=== PATIENT | female | born 1970 | race Caucasian/White ===

== ENCOUNTER 2019-04-15 14:52 | Inpatient (IN) | payer MEDICAID, OTHER ==
[~2019-04-15] VITALS: Ht 157.5 cm; Wt 64.0 kg
[~2019-04-15 14:52] MED LIST: FERR-89 PO; METF-960 PO; RISP1 PO
[2019-04-15] MEDS ORDERED: INSLAN SQ (15:25)
[2019-04-15 15:40] LABS: GLUCOSE,POINT OF CARE 44 MG/DL (70-110)
[2019-04-15] MEDS ORDERED: DEXTROSE 50%-WATER 25 GM/50 ML SYRINGE IVP ONE (15:45)
[2019-04-15] MEDS ORDERED: MECLIZINE HCL 25 MG TABLET PO ONE (15:45)
[2019-04-15] MEDS ORDERED: DEXTROSE 5%-0.9% SODIUM CHL 1,000 ML IV ONE (15:45)
[2019-04-15 16:07] LABS: HEMOGLOBIN 12.5 g/dL (12.0-16.0); LYMPHOCYTES # (AUTO) 2.6 K/uL (1.0-4.8); LYMPHOCYTES % (AUTO) 31.1 % (22.0-44.0); MEAN CORPUSCULAR HEMOGLOBIN 29.5 pg (26.0-34.0); MEAN CORPUSCULAR HGB CONC 33.8 G/dL (31.0-37.0); MEAN CORPUSCULAR VOLUME 87 fL (80-100); MONOCYTES # (AUTO) 0.4 K/uL (0.1-1.0); MONOCYTES % (AUTO) 4.3 % (2.0-9.0); NEUTROPHILS # (AUTO) 5.3 K/uL (1.8-7.7); NEUTROPHILS % (AUTO) 62.6 % (40.0-70.0); PLATELET COUNT (AUTO) 208 K/uL (150-450); RED BLOOD CELL COUNT(AUTO) 4.23 MIL/uL (4.00-5.20); RED CELL DISTRIBUTION WIDTH 13.6 % (11.5-14.5)
[2019-04-15 16:17] LABS: ANION GAP 8 mmol/L (8-16); CALCIUM, TOTAL 9.7 mg/dL (8.8-10.5); CARBON DIOXIDE 27 mmol/L (22-29); CHLORIDE 104 mmol/L (98-107); CREATININE 0.62 mg/dL (0.60-1.30); GLOMERULAR FILTR. RATE CALC > 60 mL/min (>60); GLUCOSE,RANDOM 68 mg/dL (70-110); POTASSIUM 3.8 mmol/L (3.5-5.1); SODIUM SERUM 139 mmol/L (136-145); UREA NITROGEN, BLOOD 22 mg/dL (7-18)
[2019-04-15 16:29] LABS: GLUCOSE,POINT OF CARE 79 MG/DL (70-110)
[2019-04-15 16:31] LABS: ALANINE AMINOTRANSFERASE 22 U/L (12-78); ALKALINE PHOSPHATASE 66 U/L (46-116); ASPARTATE AMINOTRANSFERASE 19 U/L (15-37); BILIRUBIN,TOTAL 0.3 mg/dL (0.1-1.0); TOTAL PROTEIN, SERUM 7.8 g/dL (6.4-8.2)
[2019-04-15 16:33] LABS: APPEARANCE,URINE CLEAR (CLEAR); BILIRUBIN,URINE NEGATIVE (NEGATIVE); GLUCOSE, URINE (UA) NEGATIVE (NEGATIVE); KETONES,URINE NEGATIVE (NEGATIVE); LEUKOCYTE ESTERASE ,URINE NEGATIVE (NEGATIVE); NITRATE,URINE NEGATIVE (NEGATIVE); OCCULT BLOOD,URINE NEGATIVE (NEGATIVE); PH,URINE 6.5 (5.0-8.0); PROTEIN,URINE NEGATIVE (NEGATIVE); UROBILINOGEN,URINE 0.2 mg/dL (<=1.0)
[2019-04-15 16:39] LABS: AMPHET/METH SCREEN,URINE NEGATIVE (NEGATIVE); BARBITURATE SCREEN, URINE NEGATIVE (NEGATIVE); BENZODIAZEPINES SCREEN,URINE NEGATIVE (NEGATIVE); CANNABINOID SCREEN,URINE NEGATIVE (NEGATIVE); COCAINE SCREEN,URINE NEGATIVE (NEGATIVE); METHADONE SCREEN, URINE NEGATIVE (NEGATIVE); OPIATE SCREEN,URINE NEGATIVE (NEGATIVE); PHENCYCLIDINE SCREEN,URINE NEGATIVE (NEGATIVE)
[2019-04-15 16:57] LABS: BACTERIA,URINE Rare /HPF (None Seen); RBC,URINE None Seen /HPF (0-2); SQUAMOUS EPITHELIAL CELL,UR Few /LPF (None Seen); WBC,URINE 0-2 /HPF (0-5)
[2019-04-15] MEDS ORDERED: HALOPERIDOL 5 MG TABLET PO PRN (17:15)
[2019-04-15 18:12] LABS: GLUCOSE,POINT OF CARE 167 MG/DL (70-110)
[2019-04-15 19:46] LABS: GLUCOSE,POINT OF CARE 147 MG/DL (70-110)
[2019-04-15 20:53] LABS: GLUCOSE,POINT OF CARE 149 MG/DL (70-110)
[2019-04-15] MEDS ORDERED: PNEUMOCOCCAL VACCINE POLYVALENT 0.5 ML VIAL [PPSV23] IM ONE (22:30)
[2019-04-15 22:50] VITALS: BP 115/69
[2019-04-16] MEDS ORDERED: DEXTROSE 50%-WATER 25 GM/50 ML SYRINGE IVP PRN (06:45)
[2019-04-16 06:57] LABS: GLUCOMETER DEV NAME(LOC) 3EX.; GLUCOSE,POINT OF CARE 155 MG/DL (70-110)
[2019-04-16] MEDS: INSULIN LISPRO 100 UNITS/ML SQ PRN ×2 (07:04→13:33)
[2019-04-16 08:23] LABS: CHOL/HDL RATIO 1.9 (3.9-5.7); FREE T4 (FREE THYROXINE) 1.04 ng/dL (0.76-1.46); THYROID STIMULATING HORMONE 4.32 uIU/mL (0.36-3.74)
[2019-04-16] MEDS ORDERED: INSULIN GLARGINE,HUM.REC.ANLOG 100 UNITS/ML SQ SCH (09:00)
[2019-04-16] MEDS: LOPERAMIDE HCL 2 MG CAPSULE PO PRN (09:25)
[2019-04-16] MEDS: SERTRALINE HCL 50 MG TABLET PO SCH (10:13)
[2019-04-16] MEDS: RisperiDONE 0.5 MG TABLET PO SCH (10:13)
[2019-04-16 13:23] LABS: GLUCOMETER DEV NAME(LOC) 3EX.; GLUCOSE,POINT OF CARE 213 MG/DL (70-110)
[2019-04-16 17:05] VITALS: BP 97/57
[2019-04-16] MEDS ORDERED: INSULIN LISPRO 100 UNITS/ML SQ PRN (17:45)
[2019-04-16] MEDS ORDERED: GLUCAGON,HUMAN RECOMBINANT 1 MG VIAL IM PRN (17:45)
[2019-04-16 17:46] LABS: GLUCOMETER DEV NAME(LOC) 3EX.; GLUCOSE,POINT OF CARE 98 MG/DL (70-110)
[2019-04-16 21:22] LABS: GLUCOMETER DEV NAME(LOC) 3EX.; GLUCOSE,POINT OF CARE 100 MG/DL (70-110)
[2019-04-17 04:08] VITALS: BP 126/68
[2019-04-17] MEDS: IBUPROFEN 400 MG TABLET PO PRN ×2 (04:12→16:40)
[2019-04-17 05:28] LABS: GLUCOMETER DEV NAME(LOC) 3EX.; GLUCOSE,POINT OF CARE 105 MG/DL (70-110)
[2019-04-17] MEDS: INSULIN LISPRO 100 UNITS/ML SQ PRN ×3 (07:06→22:09)
[2019-04-17] MEDS: RisperiDONE 0.5 MG TABLET PO SCH (09:00)
[2019-04-17 09:12] VITALS: BP 144/71
[2019-04-17] MEDS: SERTRALINE HCL 50 MG TABLET PO SCH (09:44)
[2019-04-17 11:33] LABS: GLUCOMETER DEV NAME(LOC) 3EX.; GLUCOSE,POINT OF CARE 135 MG/DL (70-110)
[2019-04-17 16:40] VITALS: BP 137/68
[2019-04-17 17:25] LABS: GLUCOMETER DEV NAME(LOC) 3EX.; GLUCOSE,POINT OF CARE 144 MG/DL (70-110)
[2019-04-17 22:19] LABS: GLUCOMETER DEV NAME(LOC) 3EX.; GLUCOSE,POINT OF CARE 192 MG/DL (70-110)
[2019-04-18 04:07] VITALS: BP 128/75
[2019-04-18] MEDS: LOPERAMIDE HCL 2 MG CAPSULE PO PRN (05:27)
[2019-04-18 05:34] LABS: GLUCOMETER DEV NAME(LOC) 3EX.; GLUCOSE,POINT OF CARE 120 MG/DL (70-110)
[2019-04-18 08:32] VITALS: BP 136/69
[2019-04-18] MEDS: RisperiDONE 0.5 MG TABLET PO SCH (09:03)
[2019-04-18] MEDS: SERTRALINE HCL 50 MG TABLET PO SCH (09:03)
[2019-04-18] MEDS: INSULIN GLARGINE,HUM.REC.ANLOG 100 UNITS/ML SQ SCH (09:14)
[2019-04-18 09:23] LABS: GLUCOMETER DEV NAME(LOC) 3EX.; GLUCOSE,POINT OF CARE 194 MG/DL (70-110)
[2019-04-18 11:41] LABS: GLUCOMETER DEV NAME(LOC) 3EX.; GLUCOSE,POINT OF CARE 131 MG/DL (70-110)
[2019-04-18 15:18] LABS: GLUCOMETER DEV NAME(LOC) 3EX.; GLUCOSE,POINT OF CARE 179 MG/DL (70-110)
[2019-04-18] MEDS: ONDANSETRON HCL 4 MG TABLET PO PRN (15:30)
[2019-04-18 16:36] VITALS: BP 103/73
[2019-04-18 17:11] LABS: GLUCOMETER DEV NAME(LOC) 3EX.; GLUCOSE,POINT OF CARE 141 MG/DL (70-110)
[2019-04-18] MEDS: INSULIN LISPRO 100 UNITS/ML SQ PRN ×2 (17:15→21:11)
[2019-04-18 21:20] LABS: GLUCOMETER DEV NAME(LOC) 3EX.; GLUCOSE,POINT OF CARE 185 MG/DL (70-110)
[2019-04-19] MEDS: ZOLPIDEM TARTRATE 10 MG TABLET PO PRN (01:23)
[2019-04-19 04:43] VITALS: BP 144/80
[2019-04-19 05:35] LABS: GLUCOMETER DEV NAME(LOC) 3EX.; GLUCOSE,POINT OF CARE 118 MG/DL (70-110)
[2019-04-19] MEDS: INSULIN LISPRO 100 UNITS/ML SQ PRN ×2 (07:03→17:26)
[2019-04-19 08:08] VITALS: BP 139/73
[2019-04-19] MEDS: SERTRALINE HCL 50 MG TABLET PO SCH (08:43)
[2019-04-19] MEDS: RisperiDONE 0.5 MG TABLET PO SCH ×3 (08:43→09:00)
[2019-04-19] MEDS: INSULIN GLARGINE,HUM.REC.ANLOG 100 UNITS/ML SQ SCH (08:53)
[2019-04-19 09:04] LABS: GLUCOMETER DEV NAME(LOC) 3EX.; GLUCOSE,POINT OF CARE 221 MG/DL (70-110)
[2019-04-19 16:33] VITALS: BP 148/88
[2019-04-19 17:01] LABS: GLUCOMETER DEV NAME(LOC) 3EX.; GLUCOSE,POINT OF CARE 193 MG/DL (70-110)
[2019-04-19] MEDS: LOPERAMIDE HCL 2 MG CAPSULE PO PRN (17:33)
[2019-04-19 20:26] LABS: GLUCOMETER DEV NAME(LOC) 3EX.; GLUCOSE,POINT OF CARE 170 MG/DL (70-110)
[2019-04-20 00:27] VITALS: BP 123/74
[2019-04-20] MEDS: IBUPROFEN 400 MG TABLET PO PRN ×2 (00:30→21:17)
[2019-04-20] MEDS: ZOLPIDEM TARTRATE 10 MG TABLET PO PRN ×2 (00:31→21:16)
[2019-04-20 05:43] LABS: GLUCOMETER DEV NAME(LOC) 3EX.; GLUCOSE,POINT OF CARE 76 MG/DL (70-110)
[2019-04-20] MEDS: INSULIN LISPRO 100 UNITS/ML SQ PRN ×3 (06:49→17:16)
[2019-04-20 08:41] VITALS: BP 129/68
[2019-04-20] MEDS: RisperiDONE 0.5 MG TABLET PO SCH (09:45)
[2019-04-20] MEDS: SERTRALINE HCL 50 MG TABLET PO SCH (09:45)
[2019-04-20] MEDS: INSULIN GLARGINE,HUM.REC.ANLOG 100 UNITS/ML SQ SCH (09:49)
[2019-04-20] MEDS: ONDANSETRON HCL 4 MG TABLET PO PRN ×2 (10:06→16:12)
[2019-04-20] MEDS: ARIPiprazole 5 MG TABLET PO SCH (11:22)
[2019-04-20] MEDS: LOPERAMIDE HCL 2 MG CAPSULE PO PRN (11:22)
[2019-04-20 12:14] LABS: GLUCOMETER DEV NAME(LOC) 3EX.; GLUCOSE,POINT OF CARE 172 MG/DL (70-110)
[2019-04-20 16:58] VITALS: BP 95/55
[2019-04-20 20:56] LABS: GLUCOMETER DEV NAME(LOC) 3EX.; GLUCOSE,POINT OF CARE 164 MG/DL (70-110)
[2019-04-20 20:56] LABS: GLUCOMETER DEV NAME(LOC) 3EX.; GLUCOSE,POINT OF CARE 139 MG/DL (70-110)
[2019-04-20 21:14] VITALS: BP 111/60
[2019-04-21] MEDS: ONDANSETRON HCL 4 MG TABLET PO PRN (04:27)
[2019-04-21 05:40] VITALS: BP 97/64
[2019-04-21 06:13] LABS: GLUCOMETER DEV NAME(LOC) 3EX.; GLUCOSE,POINT OF CARE 109 MG/DL (70-110)
[2019-04-21 08:32] VITALS: BP 119/74
[2019-04-21] MEDS: ARIPiprazole 5 MG TABLET PO SCH ×2 (09:00→09:23)
[2019-04-21] MEDS: SERTRALINE HCL 50 MG TABLET PO SCH (09:24)
[2019-04-21] MEDS: INSULIN GLARGINE,HUM.REC.ANLOG 100 UNITS/ML SQ SCH (09:24)
[2019-04-21 11:20] LABS: GLUCOMETER DEV NAME(LOC) 3EX.; GLUCOSE,POINT OF CARE 144 MG/DL (70-110)
[2019-04-21] MEDS: INSULIN LISPRO 100 UNITS/ML SQ PRN ×2 (11:25→20:43)
[2019-04-21 16:45] VITALS: BP 129/70
[2019-04-21 17:05] LABS: GLUCOMETER DEV NAME(LOC) 3EX.; GLUCOSE,POINT OF CARE 132 MG/DL (70-110)
[2019-04-21 20:48] LABS: GLUCOMETER DEV NAME(LOC) 3EX.; GLUCOSE,POINT OF CARE 227 MG/DL (70-110)
[2019-04-21] MEDS: ZOLPIDEM TARTRATE 10 MG TABLET PO PRN (20:51)
[2019-04-22 02:37] VITALS: BP 116/70
[2019-04-22] MEDS: ONDANSETRON HCL 4 MG TABLET PO PRN (04:33)
[2019-04-22] MEDS: LOPERAMIDE HCL 2 MG CAPSULE PO PRN (04:33)
[2019-04-22 05:54] LABS: GLUCOMETER DEV NAME(LOC) 3EX.; GLUCOSE,POINT OF CARE 110 MG/DL (70-110)
[2019-04-22] MEDS: SERTRALINE HCL 50 MG TABLET PO SCH (08:29)
[2019-04-22] MEDS: INSULIN GLARGINE,HUM.REC.ANLOG 100 UNITS/ML SQ SCH (08:38)
[2019-04-22] MEDS: ARIPiprazole 5 MG TABLET PO SCH (08:42)
[2019-04-22 08:59] VITALS: BP 109/64
[2019-04-22 12:04] LABS: GLUCOMETER DEV NAME(LOC) 3EX.; GLUCOSE,POINT OF CARE 162 MG/DL (70-110)
[2019-04-22] MEDS: INSULIN LISPRO 100 UNITS/ML SQ PRN ×3 (12:07→21:43)
[2019-04-22 17:29] VITALS: BP 130/67
[2019-04-22 17:34] LABS: GLUCOMETER DEV NAME(LOC) 3EX.; GLUCOSE,POINT OF CARE 146 MG/DL (70-110)
[2019-04-22 21:44] LABS: GLUCOMETER DEV NAME(LOC) 3EX.; GLUCOSE,POINT OF CARE 154 MG/DL (70-110)
[2019-04-23] MEDS: ZOLPIDEM TARTRATE 10 MG TABLET PO PRN ×2 (01:12→23:10)
[2019-04-23] MEDS: ONDANSETRON HCL 4 MG TABLET PO PRN ×3 (01:12→18:37)
[2019-04-23 01:21] VITALS: BP 117/70
[2019-04-23 05:43] LABS: GLUCOMETER DEV NAME(LOC) 3EX.; GLUCOSE,POINT OF CARE 92 MG/DL (70-110)
[2019-04-23] MEDS: INSULIN LISPRO 100 UNITS/ML SQ PRN ×2 (06:33→12:46)
[2019-04-23 08:55] VITALS: BP 133/57
[2019-04-23] MEDS: ARIPiprazole 5 MG TABLET PO SCH (11:02)
[2019-04-23] MEDS: SERTRALINE HCL 50 MG TABLET PO SCH (11:02)
[2019-04-23] MEDS: INSULIN GLARGINE,HUM.REC.ANLOG 100 UNITS/ML SQ SCH (11:13)
[2019-04-23 12:51] LABS: GLUCOMETER DEV NAME(LOC) 3EX.; GLUCOSE,POINT OF CARE 161 MG/DL (70-110)
[2019-04-23] MEDS: IBUPROFEN 400 MG TABLET PO PRN (13:50)
[2019-04-23 16:46] LABS: GLUCOMETER DEV NAME(LOC) 3EX.; GLUCOSE,POINT OF CARE 124 MG/DL (70-110)
[2019-04-23 17:51] VITALS: BP 105/66
[2019-04-23 21:13] LABS: GLUCOMETER DEV NAME(LOC) 3EX.; GLUCOSE,POINT OF CARE 135 MG/DL (70-110)
[2019-04-24] MEDS: ONDANSETRON HCL 4 MG TABLET PO PRN ×3 (03:42→15:02)
[2019-04-24 03:43] VITALS: BP 103/64
[2019-04-24 05:27] LABS: GLUCOMETER DEV NAME(LOC) 3EX.; GLUCOSE,POINT OF CARE 81 MG/DL (70-110)
[2019-04-24] MEDS: INSULIN LISPRO 100 UNITS/ML SQ PRN ×2 (07:03→21:28)
[2019-04-24] MEDS: SERTRALINE HCL 50 MG TABLET PO SCH (08:01)
[2019-04-24] MEDS: ARIPiprazole 5 MG TABLET PO SCH (08:01)
[2019-04-24] MEDS: LOPERAMIDE HCL 2 MG CAPSULE PO PRN (08:05)
[2019-04-24] MEDS: INSULIN GLARGINE,HUM.REC.ANLOG 100 UNITS/ML SQ SCH (08:05)
[2019-04-24 08:21] VITALS: BP 109/83
[2019-04-24 11:31] LABS: GLUCOMETER DEV NAME(LOC) 3EX.; GLUCOSE,POINT OF CARE 84 MG/DL (70-110)
[2019-04-24 15:02] VITALS: BP 110/67
[2019-04-24] MEDS: LORazepam 2 MG TABLET PO PRN (15:02)
[2019-04-24 16:00] VITALS: BP 98/62
[2019-04-24 17:14] LABS: GLUCOMETER DEV NAME(LOC) 3EX.; GLUCOSE,POINT OF CARE 119 MG/DL (70-110)
[2019-04-24 21:53] LABS: GLUCOMETER DEV NAME(LOC) 3EX.; GLUCOSE,POINT OF CARE 158 MG/DL (70-110)
[2019-04-24] MEDS: ZOLPIDEM TARTRATE 10 MG TABLET PO PRN (22:21)
[2019-04-25 04:18] VITALS: BP 90/58
[2019-04-25 05:46] LABS: GLUCOMETER DEV NAME(LOC) 3EX.; GLUCOSE,POINT OF CARE 99 MG/DL (70-110)
[2019-04-25] MEDS: INSULIN LISPRO 100 UNITS/ML SQ PRN ×2 (07:05→21:15)
[2019-04-25] MEDS: LORazepam 2 MG TABLET PO PRN ×2 (08:21→16:48)
[2019-04-25] MEDS: ONDANSETRON HCL 4 MG TABLET PO PRN ×2 (08:21→21:27)
[2019-04-25] MEDS: SERTRALINE HCL 100 MG TABLET PO SCH (08:21)
[2019-04-25] MEDS: ARIPiprazole 5 MG TABLET PO SCH (08:21)
[2019-04-25] MEDS: INSULIN GLARGINE,HUM.REC.ANLOG 100 UNITS/ML SQ SCH (08:24)
[2019-04-25 09:00] VITALS: BP 109/63
[2019-04-25 12:14] LABS: GLUCOMETER DEV NAME(LOC) 3EX.; GLUCOSE,POINT OF CARE 110 MG/DL (70-110)
[2019-04-25 16:53] LABS: GLUCOMETER DEV NAME(LOC) 3EX.; GLUCOSE,POINT OF CARE 98 MG/DL (70-110)
[2019-04-25 18:44] VITALS: BP 100/65
[2019-04-25 21:20] LABS: GLUCOMETER DEV NAME(LOC) 3EX.; GLUCOSE,POINT OF CARE 146 MG/DL (70-110)
[2019-04-26] MEDS: ZOLPIDEM TARTRATE 10 MG TABLET PO PRN ×2 (01:46→21:06)
[2019-04-26 05:32] LABS: GLUCOMETER DEV NAME(LOC) 3EX.; GLUCOSE,POINT OF CARE 122 MG/DL (70-110)
[2019-04-26 06:30] VITALS: BP 96/59
[2019-04-26] MEDS: SERTRALINE HCL 100 MG TABLET PO SCH (08:35)
[2019-04-26] MEDS: ARIPiprazole 5 MG TABLET PO SCH (08:35)
[2019-04-26] MEDS: LOPERAMIDE HCL 2 MG CAPSULE PO PRN (08:37)
[2019-04-26] MEDS: LORazepam 2 MG TABLET PO PRN ×2 (08:37→13:47)
[2019-04-26] MEDS: INSULIN GLARGINE,HUM.REC.ANLOG 100 UNITS/ML SQ SCH (08:42)
[2019-04-26 09:37] VITALS: BP 128/68
[2019-04-26 13:28] LABS: GLUCOMETER DEV NAME(LOC) 3EX.; GLUCOSE,POINT OF CARE 130 MG/DL (70-110)
[2019-04-26] MEDS: ONDANSETRON HCL 4 MG TABLET PO PRN (13:51)
[2019-04-26 16:00] VITALS: BP 114/66
[2019-04-26] MEDS: INSULIN LISPRO 100 UNITS/ML SQ PRN ×2 (17:13→21:14)
[2019-04-26 17:30] LABS: GLUCOMETER DEV NAME(LOC) 3EX.; GLUCOSE,POINT OF CARE 162 MG/DL (70-110)
[2019-04-26 21:24] LABS: GLUCOMETER DEV NAME(LOC) 3EX.; GLUCOSE,POINT OF CARE 135 MG/DL (70-110)
[2019-04-27] MEDS: LORazepam 2 MG TABLET PO PRN ×3 (01:51→17:58)
[2019-04-27] MEDS: ONDANSETRON HCL 4 MG TABLET PO PRN ×2 (01:51→17:56)
[2019-04-27 05:29] LABS: GLUCOMETER DEV NAME(LOC) 3EX.; GLUCOSE,POINT OF CARE 89 MG/DL (70-110)
[2019-04-27] MEDS: LOPERAMIDE HCL 2 MG CAPSULE PO PRN (05:44)
[2019-04-27] MEDS: INSULIN LISPRO 100 UNITS/ML SQ PRN ×3 (07:01→17:55)
[2019-04-27 08:00] VITALS: BP 118/71
[2019-04-27] MEDS: ARIPiprazole 5 MG TABLET PO SCH (08:18)
[2019-04-27] MEDS: SERTRALINE HCL 100 MG TABLET PO SCH (08:19)
[2019-04-27] MEDS: INSULIN GLARGINE,HUM.REC.ANLOG 100 UNITS/ML SQ SCH (09:00)
[2019-04-27 11:51] LABS: GLUCOMETER DEV NAME(LOC) 3EX.; GLUCOSE,POINT OF CARE 108 MG/DL (70-110)
[2019-04-27 16:54] LABS: GLUCOMETER DEV NAME(LOC) 3EX.; GLUCOSE,POINT OF CARE 146 MG/DL (70-110)
[2019-04-27 19:49] VITALS: BP 115/67
[2019-04-28 03:08] VITALS: BP 109/52
[2019-04-28 05:37] LABS: GLUCOMETER DEV NAME(LOC) 3EX.; GLUCOSE,POINT OF CARE 125 MG/DL (70-110)
[2019-04-28] MEDS: INSULIN LISPRO 100 UNITS/ML SQ PRN ×2 (07:06→11:41)
[2019-04-28 08:00] VITALS: BP 136/69
[2019-04-28] MEDS: SERTRALINE HCL 100 MG TABLET PO SCH (08:45)
[2019-04-28] MEDS: LORazepam 2 MG TABLET PO PRN (08:46)
[2019-04-28] MEDS: ARIPiprazole 5 MG TABLET PO SCH (08:46)
[2019-04-28] MEDS: ONDANSETRON HCL 4 MG TABLET PO PRN ×2 (08:46→16:01)
[2019-04-28 08:55] LABS: GLUCOMETER DEV NAME(LOC) 3EX.; GLUCOSE,POINT OF CARE 137 MG/DL (70-110)
[2019-04-28] MEDS: INSULIN GLARGINE,HUM.REC.ANLOG 100 UNITS/ML SQ SCH (08:57)
[2019-04-28] MEDS: LOPERAMIDE HCL 2 MG CAPSULE PO PRN (10:20)
[2019-04-28 11:41] LABS: GLUCOMETER DEV NAME(LOC) 3EX.; GLUCOSE,POINT OF CARE 106 MG/DL (70-110)
[2019-04-28 17:00] VITALS: BP 98/51
[2019-04-28 17:32] LABS: GLUCOMETER DEV NAME(LOC) 3EX.; GLUCOSE,POINT OF CARE 126 MG/DL (70-110)
[2019-04-28 23:40] LABS: GLUCOMETER DEV NAME(LOC) 3EX.; GLUCOSE,POINT OF CARE 90 MG/DL (70-110)
[2019-04-29 00:30] VITALS: BP 100/63
[2019-04-29] MEDS: ONDANSETRON HCL 4 MG TABLET PO PRN (00:33)
[2019-04-29] MEDS: ZOLPIDEM TARTRATE 10 MG TABLET PO PRN (00:33)
[2019-04-29 05:28] LABS: GLUCOMETER DEV NAME(LOC) 3EX.; GLUCOSE,POINT OF CARE 93 MG/DL (70-110)
[2019-04-29] MEDS: LOPERAMIDE HCL 2 MG CAPSULE PO PRN (06:48)
[2019-04-29 08:00] VITALS: BP 118/72
[2019-04-29] MEDS: ARIPiprazole 5 MG TABLET PO SCH (09:01)
[2019-04-29] MEDS: SERTRALINE HCL 100 MG TABLET PO SCH (09:01)
[2019-04-29] MEDS: LORazepam 2 MG TABLET PO PRN (09:03)
[2019-04-29] MEDS: INSULIN GLARGINE,HUM.REC.ANLOG 100 UNITS/ML SQ SCH (09:15)
[2019-04-29 09:18] LABS: GLUCOMETER DEV NAME(LOC) 3EX.; GLUCOSE,POINT OF CARE 151 MG/DL (70-110)
[2019-04-29 09:21] VITALS: BP 118/72
[2019-04-29 11:55] LABS: GLUCOMETER DEV NAME(LOC) 3EX.; GLUCOSE,POINT OF CARE 86 MG/DL (70-110)
[2019-04-29] MEDS: INSULIN LISPRO 100 UNITS/ML SQ PRN (11:59)
[2019-04-29 17:07] VITALS: BP 116/78
[2019-04-29 17:27] LABS: GLUCOMETER DEV NAME(LOC) 3EX.; GLUCOSE,POINT OF CARE 97 MG/DL (70-110)
[2019-04-29] MEDS: IBUPROFEN 400 MG TABLET PO PRN (20:47)
[2019-04-29 21:06] LABS: GLUCOMETER DEV NAME(LOC) 3EX.; GLUCOSE,POINT OF CARE 105 MG/DL (70-110)
[2019-04-30 01:51] VITALS: BP 101/59
[2019-04-30] MEDS: ZOLPIDEM TARTRATE 10 MG TABLET PO PRN ×2 (02:22→21:13)
[2019-04-30 05:44] LABS: GLUCOMETER DEV NAME(LOC) 3EX.; GLUCOSE,POINT OF CARE 111 MG/DL (70-110)
[2019-04-30] MEDS: INSULIN LISPRO 100 UNITS/ML SQ PRN ×2 (06:38→13:03)
[2019-04-30 08:15] VITALS: BP 115/68
[2019-04-30] MEDS: LORazepam 2 MG TABLET PO PRN (08:55)
[2019-04-30] MEDS: ARIPiprazole 5 MG TABLET PO SCH (08:56)
[2019-04-30] MEDS: SERTRALINE HCL 100 MG TABLET PO SCH (08:56)
[2019-04-30] MEDS: INSULIN GLARGINE,HUM.REC.ANLOG 100 UNITS/ML SQ SCH (09:03)
[2019-04-30 15:13] LABS: GLUCOMETER DEV NAME(LOC) 3EX.; GLUCOSE,POINT OF CARE 153 MG/DL (70-110)
[2019-04-30 15:13] LABS: GLUCOMETER DEV NAME(LOC) 3EX.; GLUCOSE,POINT OF CARE 119 MG/DL (70-110)
[2019-04-30 16:00] VITALS: BP 118/69
[2019-04-30 17:07] LABS: GLUCOMETER DEV NAME(LOC) 3EX.; GLUCOSE,POINT OF CARE 131 MG/DL (70-110)
[2019-04-30 20:49] LABS: GLUCOMETER DEV NAME(LOC) 3EX.; GLUCOSE,POINT OF CARE 127 MG/DL (70-110)
[2019-05-01 05:44] LABS: GLUCOMETER DEV NAME(LOC) 3EX.; GLUCOSE,POINT OF CARE 100 MG/DL (70-110)
[2019-05-01] MEDS: LOPERAMIDE HCL 2 MG CAPSULE PO PRN (05:53)
[2019-05-01] MEDS: INSULIN LISPRO 100 UNITS/ML SQ PRN ×3 (06:50→17:40)
[2019-05-01] MEDS: SERTRALINE HCL 100 MG TABLET PO SCH (08:36)
[2019-05-01] MEDS: ARIPiprazole 5 MG TABLET PO SCH (08:36)
[2019-05-01 08:37] VITALS: BP 120/60
[2019-05-01] MEDS: INSULIN GLARGINE,HUM.REC.ANLOG 100 UNITS/ML SQ SCH (08:40)
[2019-05-01 08:50] LABS: GLUCOMETER DEV NAME(LOC) 3EX.; GLUCOSE,POINT OF CARE 149 MG/DL (70-110)
[2019-05-01] MEDS: LORazepam 2 MG TABLET PO PRN (09:00)
[2019-05-01] MEDS: ONDANSETRON HCL 4 MG TABLET PO PRN (09:04)
[2019-05-01 11:57] LABS: GLUCOMETER DEV NAME(LOC) 3EX.; GLUCOSE,POINT OF CARE 132 MG/DL (70-110)
[2019-05-01 17:00] VITALS: BP 115/70
[2019-05-01 17:56] LABS: GLUCOMETER DEV NAME(LOC) 3EX.; GLUCOSE,POINT OF CARE 165 MG/DL (70-110)
[2019-05-02] MEDS: ONDANSETRON HCL 4 MG TABLET PO PRN ×2 (00:08→09:23)
[2019-05-02] MEDS: ZOLPIDEM TARTRATE 10 MG TABLET PO PRN ×2 (00:10→20:48)
[2019-05-02 05:33] LABS: GLUCOMETER DEV NAME(LOC) 3EX.; GLUCOSE,POINT OF CARE 92 MG/DL (70-110)
[2019-05-02 08:30] VITALS: BP 107/59
[2019-05-02 08:49] LABS: GLUCOMETER DEV NAME(LOC) 3EX.; GLUCOSE,POINT OF CARE 150 MG/DL (70-110)
[2019-05-02] MEDS: LORazepam 2 MG TABLET PO PRN (09:22)
[2019-05-02] MEDS: SERTRALINE HCL 100 MG TABLET PO SCH (09:23)
[2019-05-02] MEDS: ARIPiprazole 5 MG TABLET PO SCH (09:23)
[2019-05-02] MEDS: INSULIN GLARGINE,HUM.REC.ANLOG 100 UNITS/ML SQ SCH (09:24)
[2019-05-02 11:19] LABS: GLUCOMETER DEV NAME(LOC) 3EX.; GLUCOSE,POINT OF CARE 134 MG/DL (70-110)
[2019-05-02] MEDS: INSULIN LISPRO 100 UNITS/ML SQ PRN (11:36)
[2019-05-02] MEDS: LOPERAMIDE HCL 2 MG CAPSULE PO PRN (11:44)
[2019-05-02 16:43] LABS: GLUCOMETER DEV NAME(LOC) 3EX.; GLUCOSE,POINT OF CARE 125 MG/DL (70-110)
[2019-05-02 18:01] VITALS: BP 95/61
[2019-05-02 20:39] LABS: GLUCOMETER DEV NAME(LOC) 3EX.; GLUCOSE,POINT OF CARE 185 MG/DL (70-110)
[2019-05-03] MEDS: IBUPROFEN 400 MG TABLET PO PRN (04:43)
[2019-05-03 04:44] VITALS: BP 113/64
[2019-05-03 05:26] LABS: GLUCOMETER DEV NAME(LOC) 3EX.; GLUCOSE,POINT OF CARE 85 MG/DL (70-110)
[2019-05-03 08:00] VITALS: BP 112/62
[2019-05-03] MEDS: INSULIN GLARGINE,HUM.REC.ANLOG 100 UNITS/ML SQ SCH (09:00)
[2019-05-03] MEDS: SERTRALINE HCL 100 MG TABLET PO SCH (09:06)
[2019-05-03] MEDS: LORazepam 2 MG TABLET PO PRN (09:06)
[2019-05-03] MEDS: ONDANSETRON HCL 4 MG TABLET PO PRN (09:06)
[2019-05-03] MEDS: ARIPiprazole 5 MG TABLET PO SCH (09:07)
[2019-05-03] MEDS: LOPERAMIDE HCL 2 MG CAPSULE PO PRN (09:13)
[2019-05-03 09:24] LABS: GLUCOMETER DEV NAME(LOC) 3EX.; GLUCOSE,POINT OF CARE 128 MG/DL (70-110)
[2019-05-03 16:36] LABS: GLUCOMETER DEV NAME(LOC) 3EX.; GLUCOSE,POINT OF CARE 120 MG/DL (70-110)
[2019-05-03 17:46] VITALS: BP 102/65
[2019-05-03] MEDS: ZOLPIDEM TARTRATE 10 MG TABLET PO PRN (20:25)
[2019-05-04] MEDS: ONDANSETRON HCL 4 MG TABLET PO PRN ×2 (05:56→16:22)
[2019-05-04 05:59] LABS: GLUCOMETER DEV NAME(LOC) 3EX.; GLUCOSE,POINT OF CARE 104 MG/DL (70-110)
[2019-05-04] MEDS: ARIPiprazole 5 MG TABLET PO SCH (08:36)
[2019-05-04] MEDS: SERTRALINE HCL 100 MG TABLET PO SCH (08:36)
[2019-05-04 08:47] VITALS: BP 104/62
[2019-05-04] MEDS: INSULIN GLARGINE,HUM.REC.ANLOG 100 UNITS/ML SQ SCH (08:50)
[2019-05-04] MEDS: LOPERAMIDE HCL 2 MG CAPSULE PO PRN (11:33)
[2019-05-04 12:06] LABS: GLUCOMETER DEV NAME(LOC) 3EX.; GLUCOSE,POINT OF CARE 113 MG/DL (70-110)
[2019-05-04 16:38] LABS: GLUCOMETER DEV NAME(LOC) 3EX.; GLUCOSE,POINT OF CARE 146 MG/DL (70-110)
[2019-05-04] MEDS: INSULIN LISPRO 100 UNITS/ML SQ PRN (17:20)
[2019-05-04 19:39] VITALS: BP 148/80
[2019-05-04] MEDS: ZOLPIDEM TARTRATE 10 MG TABLET PO PRN (20:19)
[2019-05-04 20:29] LABS: GLUCOMETER DEV NAME(LOC) 3EX.; GLUCOSE,POINT OF CARE 115 MG/DL (70-110)
[2019-05-05] MEDS: ONDANSETRON HCL 4 MG TABLET PO PRN ×2 (04:02→12:54)
[2019-05-05 05:42] LABS: GLUCOMETER DEV NAME(LOC) 3EX.; GLUCOSE,POINT OF CARE 113 MG/DL (70-110)
[2019-05-05] MEDS: INSULIN LISPRO 100 UNITS/ML SQ PRN (06:34)
[2019-05-05 08:00] VITALS: BP 116/67
[2019-05-05] MEDS: ARIPiprazole 5 MG TABLET PO SCH (08:51)
[2019-05-05] MEDS: SERTRALINE HCL 100 MG TABLET PO SCH (08:51)
[2019-05-05] MEDS: LORazepam 2 MG TABLET PO PRN ×2 (08:51→17:04)
[2019-05-05] MEDS: INSULIN GLARGINE,HUM.REC.ANLOG 100 UNITS/ML SQ SCH (09:01)
[2019-05-05 09:11] LABS: GLUCOMETER DEV NAME(LOC) 3EX.; GLUCOSE,POINT OF CARE 150 MG/DL (70-110)
[2019-05-05] MEDS: BusPIRone HCL 10 MG TABLET PO SCH (16:15)
[2019-05-05 16:26] LABS: GLUCOMETER DEV NAME(LOC) 3EX.; GLUCOSE,POINT OF CARE 100 MG/DL (70-110)
[2019-05-05 17:07] VITALS: BP 128/69
[2019-05-05] MEDS: ZOLPIDEM TARTRATE 10 MG TABLET PO PRN (20:20)
[2019-05-05 20:34] LABS: GLUCOMETER DEV NAME(LOC) 3EX.; GLUCOSE,POINT OF CARE 138 MG/DL (70-110)
[2019-05-06] MEDS: ONDANSETRON HCL 4 MG TABLET PO PRN (04:40)
[2019-05-06 05:33] LABS: GLUCOMETER DEV NAME(LOC) 3EX.; GLUCOSE,POINT OF CARE 92 MG/DL (70-110)
[2019-05-06 08:00] VITALS: BP 109/67
[2019-05-06] MEDS: INSULIN GLARGINE,HUM.REC.ANLOG 100 UNITS/ML SQ SCH (09:00)
[2019-05-06] MEDS: BusPIRone HCL 10 MG TABLET PO SCH ×2 (09:19→17:17)
[2019-05-06] MEDS: SERTRALINE HCL 100 MG TABLET PO SCH (09:20)
[2019-05-06] MEDS: ARIPiprazole 5 MG TABLET PO SCH (09:20)
[2019-05-06 09:34] LABS: GLUCOMETER DEV NAME(LOC) 3EX.; GLUCOSE,POINT OF CARE 128 MG/DL (70-110)
[2019-05-06 17:02] VITALS: BP 103/68
[2019-05-06 17:36] LABS: GLUCOMETER DEV NAME(LOC) 3EX.; GLUCOSE,POINT OF CARE 106 MG/DL (70-110)
[2019-05-06] MEDS: INSULIN LISPRO 100 UNITS/ML SQ PRN (21:01)
[2019-05-06 21:15] LABS: GLUCOMETER DEV NAME(LOC) 3E.I; GLUCOSE,POINT OF CARE 145 MG/DL (70-110)
[2019-05-07] MEDS: ONDANSETRON HCL 4 MG TABLET PO PRN (02:57)
[2019-05-07 05:44] LABS: GLUCOMETER DEV NAME(LOC) 3EX.; GLUCOSE,POINT OF CARE 115 MG/DL (70-110)
[2019-05-07] MEDS: INSULIN LISPRO 100 UNITS/ML SQ PRN ×2 (06:41→17:32)
[2019-05-07 08:00] VITALS: BP 112/69
[2019-05-07] MEDS: ARIPiprazole 5 MG TABLET PO SCH (08:54)
[2019-05-07] MEDS: BusPIRone HCL 10 MG TABLET PO SCH ×2 (08:57→16:41)
[2019-05-07] MEDS: SERTRALINE HCL 100 MG TABLET PO SCH (08:58)
[2019-05-07] MEDS: INSULIN GLARGINE,HUM.REC.ANLOG 100 UNITS/ML SQ SCH (09:06)
[2019-05-07] MEDS: LORazepam 2 MG TABLET PO PRN (09:09)
[2019-05-07 11:17] LABS: GLUCOMETER DEV NAME(LOC) 3EX.; GLUCOSE,POINT OF CARE 123 MG/DL (70-110)
[2019-05-07 16:29] VITALS: BP 92/55
[2019-05-07 16:59] LABS: GLUCOMETER DEV NAME(LOC) 3EX.; GLUCOSE,POINT OF CARE 217 MG/DL (70-110)
[2019-05-07] MEDS ORDERED: SERT100T12 PO (17:49)
[2019-05-07] MEDS ORDERED: ARIP2 PO (17:50)
[2019-05-07] MEDS ORDERED: BUSP10TA23 PO (17:50)
[2019-05-07] MEDS ORDERED: INSLAN SQ (17:53)
[2019-05-07 21:08] LABS: GLUCOMETER DEV NAME(LOC) 3EX.; GLUCOSE,POINT OF CARE 91 MG/DL (70-110)
[2019-05-07] MEDS: ZOLPIDEM TARTRATE 10 MG TABLET PO PRN (21:42)
[2019-05-08] MEDS: ONDANSETRON HCL 4 MG TABLET PO PRN (04:30)
[2019-05-08 04:39] VITALS: BP 111/67
[2019-05-08 05:39] LABS: GLUCOMETER DEV NAME(LOC) 3EX.; GLUCOSE,POINT OF CARE 79 MG/DL (70-110)
[2019-05-08] MEDS: LOPERAMIDE HCL 2 MG CAPSULE PO PRN (06:12)
[2019-05-08] MEDS: INSULIN LISPRO 100 UNITS/ML SQ PRN ×3 (06:34→21:24)
[2019-05-08 08:11] VITALS: BP 129/78
[2019-05-08] MEDS: SERTRALINE HCL 100 MG TABLET PO SCH (08:42)
[2019-05-08] MEDS: BusPIRone HCL 10 MG TABLET PO SCH ×2 (08:42→16:22)
[2019-05-08] MEDS: ARIPiprazole 5 MG TABLET PO SCH (08:43)
[2019-05-08] MEDS: INSULIN GLARGINE,HUM.REC.ANLOG 100 UNITS/ML SQ SCH (08:45)
[2019-05-08 15:56] LABS: GLUCOMETER DEV NAME(LOC) 3EX.; GLUCOSE,POINT OF CARE 86 MG/DL (70-110)
[2019-05-08 16:42] VITALS: BP 108/66
[2019-05-08 17:03] LABS: GLUCOMETER DEV NAME(LOC) 3EX.; GLUCOSE,POINT OF CARE 194 MG/DL (70-110)
[2019-05-08 21:22] LABS: GLUCOMETER DEV NAME(LOC) 3EX.; GLUCOSE,POINT OF CARE 141 MG/DL (70-110)
[2019-05-09 03:20] VITALS: BP 120/69
[2019-05-09] MEDS: ONDANSETRON HCL 4 MG TABLET PO PRN (03:23)
[2019-05-09 05:43] LABS: GLUCOMETER DEV NAME(LOC) 3EX.; GLUCOSE,POINT OF CARE 111 MG/DL (70-110)
[2019-05-09] MEDS: LORazepam 2 MG TABLET PO PRN (05:53)
[2019-05-09] MEDS: INSULIN LISPRO 100 UNITS/ML SQ PRN (06:59)
[2019-05-09] MEDS: LOPERAMIDE HCL 2 MG CAPSULE PO PRN (08:25)
[2019-05-09] MEDS: ARIPiprazole 5 MG TABLET PO SCH (08:25)
[2019-05-09] MEDS: BusPIRone HCL 10 MG TABLET PO SCH (08:25)
[2019-05-09] MEDS: SERTRALINE HCL 100 MG TABLET PO SCH (08:25)
[2019-05-09 08:39] LABS: GLUCOMETER DEV NAME(LOC) 3EX.; GLUCOSE,POINT OF CARE 154 MG/DL (70-110)
[2019-05-09 08:58] VITALS: BP 149/68
[2019-05-09] MEDS: INSULIN GLARGINE,HUM.REC.ANLOG 100 UNITS/ML SQ SCH (08:59)
== END 2019-05-09 14:00 | disposition home or self-care (01) | DRG 885 ==
LOC: EMS 14:53 → 3EI 19:00
PROVIDERS: ADMIT Psychiatry & Neurology Child & Adolescent Psychiatry; ATTEND Psychiatry & Neurology Child & Adolescent Psychiatry
DX: F25.1 Schizoaffective disorder, depressive type (principal); E11.65 Type 2 diabetes mellitus with hyperglycemia; R45.851 Suicidal ideations; F32.9 Major depressive disorder, single episode, unspecified; D64.9 Anemia, unspecified; E03.9 Hypothyroidism, unspecified; E11.649 Type 2 diabetes mellitus with hypoglycemia without coma; G43.909 Migraine, unspecified, not intractable, without status migrainosus; Z59.0 Homelessness; Z79.4 Long term (current) use of insulin; Z91.5 Personal history of self-harm
CPT/HCPCS: 82948; 83036; 84439; 84443; 90732; 96365; 99291; G0480; J1815; J7042; Q0162